=== PATIENT | female | born 1975 | race Caucasian/White ===

== ENCOUNTER 2016-12-21 13:52 | Emergency (ER) | payer MEDICAID, OTHER ==
[~2016-12-21] VITALS: Ht 157.5 cm; Wt 113.5 kg
[~2016-12-21 13:52] MED LIST: DIPH50TA PO; HALO10 PO; KEPP1000 PO; OXCA600 PO
[2016-12-21 14:42] VITALS: BP 139/102; PULSE 120; RESP 18; TEMP 98.4; O2SAT 98
[2016-12-21] MEDS ORDERED: HALOPERIDOL LACTATE 5 MG/ML AMP IM ONE (14:45)
[2016-12-21] MEDS ORDERED: LORazepam 2 MG/ML VIAL IM ONE ×2 (14:45→16:00)
[2016-12-21] MEDS ORDERED: OXCA600T PO (15:00)
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
[2016-12-21 15:47] LABS: AMPHETAMINE, URINE NEG (NEG)
[2016-12-21 15:48] LABS: BARBITURATES, URINE NEG (NEG)
[2016-12-21 15:55] LABS: AUTOMATED NEUTROPHIL # 5.8 TH/MM3 (1.8-7.7); BASOPHIL % 0.5 % (0.0-2.0); EOSINOPHIL % 0.4 % (0.0-4.0); HEMATOCRIT 39.2 % (35.0-46.0); HEMO FLAGS DIFF FINAL; MEAN CELL VOLUME 93.8 FL (80.0-100.0); MEAN CORPUSCULAR HGB CONC 34.1 % (32.0-36.0); MONO % 7.4 % (0.0-8.0); NEUT % 77.7 % (16.0-70.0); PLATELET COUNT 344 TH/MM3 (150-450); RED BLOOD COUNT 4.18 MIL/MM3 (4.00-5.30); RED CELL DISTRIBUTION WIDTH 12.2 % (11.6-17.2); WHITE BLOOD COUNT 7.3 TH/MM3 (4.0-11.0)
[2016-12-21] MEDS ORDERED: diphenhydrAMINE HCL 50 MG/ML VIAL IM ONE (16:00)
[2016-12-21 16:01] LABS: COCAINE, URINE NEG (NEG)
[2016-12-21 16:02] LABS: CHLORIDE 109 MEQ/L (98-107); POTASSIUM 3.9 MEQ/L (3.5-5.1); SODIUM (NA) 140 MEQ/L (136-145)
[2016-12-21 16:06] LABS: ANION GAP 8 MEQ/L (5-15); BICARBONATE 22.7 MEQ/L (21.0-32.0); BLOOD UREA NITROGEN 13 MG/DL (7-18)
[2016-12-21 16:09] LABS: ALT (GPT) 35 U/L (10-53); AST (GOT) 16 U/L (15-37); GLOMERULAR FILTRATION RATE 83 ML/MIN (>89)
[2016-12-21 16:11] LABS: TOTAL BILIRUBIN ADULT 0.2 MG/DL (0.2-1.0)
[2016-12-21 16:12] LABS: ALKALINE PHOSPHATASE 72 U/L (45-117)
[2016-12-21 17:39] LABS: ACETAMINOPHEN LESS THAN 2.0 MCG/ML (10.0-30.0)
[2016-12-21 19:27] VITALS: BP 131/70; PULSE 98; RESP 18; TEMP 97.6; O2SAT 100
[2016-12-21 22:00] VITALS: BP 158/81; PULSE 75; RESP 18; TEMP 97.9; O2SAT 100
[2016-12-22] MEDS ORDERED: HALOPERIDOL LACTATE 5 MG/ML AMP IM ONE (00:30)
[2016-12-22] MEDS ORDERED: diphenhydrAMINE HCL 50 MG/ML VIAL IM ONE (00:30)
[2016-12-22] MEDS ORDERED: IBUPROFEN 400 MG TAB PO ONE (00:30)
[2016-12-22 02:37] VITALS: RESP 16
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
[2016-12-22] MEDS ORDERED: TRIL600T PO (10:25)
[2016-12-22 10:40] VITALS: BP 134/80; PULSE 99; RESP 18; O2SAT 95
[2016-12-22 10:50] VITALS: BP 134/80; PULSE 99; RESP 18; O2SAT 95
== END 2016-12-22 10:58 | disposition home or self-care (01) ==
LOC: PHED 13:52 → NEPJ 12-22 10:58
DX: F25.9 Schizoaffective disorder, unspecified (principal); F31.9 Bipolar disorder, unspecified; J45.909 Unspecified asthma, uncomplicated; I10 Essential (primary) hypertension; J44.9 Chronic obstructive pulmonary disease, unspecified; F41.9 Anxiety disorder, unspecified; F17.200 Nicotine dependence, unspecified, uncomplicated; Z79.899 Other long term (current) drug therapy; Z88.5 Allergy status to narcotic agent
CPT/HCPCS: 80053; 80307; 85025; 96372; 99285; J1200; J1630; J2060; 99281